=== PATIENT | male | born 1940 | race Hispanic/Latino ===

== ENCOUNTER 2017-07-15 14:37 | Inpatient (IN) | payer MEDICARE, MEDICAID ==
--- NOTE | 2017-07-15 15:17 | HP ---
DATE OF ADMISSION: 07/15/2017 REASON FOR ADMISSION: Altered level of consciousness. HISTORY OF PRESENT ILLNESS: This is an elderly gentleman who is a resident at [facility] e received a flu shot at the end part of last week and over the weekend became very confused, lethar gic, and not his normal self. His daughter brought him into my clinic today where he was more confu sed than usual and would nod off to sleep after every question. The patient denies any chest, arm o r back pain. Also denies any syncopal or near syncopal episode. Subsequently, the patient is being admitted for further evaluation and treatment. PAST MEDICAL HISTORY: Unfortunately, the patient's chart is not here from the senior care; however , he does have, 1. History of anxiety disorder. 2. Dementia. 3. GERD. 4. Hyperlipidemia. 5. Depression. 6. Anemia. ALLERGIES: None. MEDICATIONS: None known. FAMILY HISTORY: Noncontributory. SOCIAL HISTORY: She does not smoke or drink alcohol. REVIEW OF SYSTEMS: Cannot be obtained, the patient being confused. PHYSICAL EXAMINATION: GENERAL: He is awake. He is confused. VITAL SIGNS: Blood pressure 124/67, pulse 98, respirations 18. NECK: Supple with no increased JVP or carotid bruit. Carotid had good upstroke with no thyromegaly . COR: Regular rate and rhythm. CHEST: Symmetrical with few wheezing. ABDOMEN: Soft, nontender with normoactive bowel sounds. No bruit or organomegaly. EXTREMITIES: Had 2+ edema. He had palpable pedal pulses. SKIN: There is no evidence of ulceration, lesion, or rash. NEURO: He is awake, but confused. ASSESSMENT: 1. Altered level of consciousness, questionable etiology. 2. Dementia. 3. History of gastroesophageal reflux disease. 4. History of depression. 5. History of anxiety. PLAN: I spoke with the patient's daughter at length and will admit the patient to the hospital wher e we will rule out CVA by CAT scan. We will also check labs and give diuretics for his lower extrem ity swelling. The patient's family verbalized understanding and all questions answered to satisfact ion. This is NICK Gan, dictating for Bud Rey M.D.
[2017-07-15] MEDS ORDERED: Furosemide 40 MG/4 ML VIAL SLOW IVP SCH (15:20)
[2017-07-15] MEDS ORDERED: Potassium Chloride 10 MEQ TAB PO SCH (15:30)
[2017-07-15 16:12] LABS: #Eosinphils 0.1 thou/uL (0.0-0.7); #Lymphocytes 1.5 thou/uL (1.20-3.40); #Monocytes 0.9 thou/uL (0.11-0.59); #Neutrophils 7.8 thou/uL (1.40-6.50); %Basophils 0.5 % (0.0-1.0); %Eosinophils 0.6 % (0.0-10.0); %Lymphocytes 14.3 % (21.0-51.0); %Monocytes 8.6 % (0.0-10.0); Hematocrit 45.2 % (42.0-52.0); Red Blood Cell (RBC) Count 4.82 mill/uL (4.70-6.10); White Blood Cell (WBC) Count 10.3 thou/uL (4.8-10.8)
[2017-07-15 16:32] LABS: ALT (SGPT) 7 U/L (8-55); AST (SGOT) 9 U/L (5-34); Alkaline Phosphatase 74 U/L (40-150); BUN (Urea Nitrogen) 12 mg/dL (8.4-25.7); Bilirubin, Total 0.5 mg/dL (0.2-1.2); Calc. Creatinine Clearance 0 mL/min (70-130); Calcium 8.7 mg/dL (7.8-10.44); Estimated GFR-MDRD Greater than 90; Protein, Total 7.5 g/dL (5.8-8.1)
[2017-07-15 16:41] LABS: Anion Gap 16 mmol/L (10-20); Carbon Dioxide 33 mmol/L (23-31); Chloride 96 mmol/L (98-107)
[2017-07-15 17:14] VITALS: BMI 41.1
[2017-07-15] MEDS: Sodium Chloride 0.9% 1,000 ML IV SCH (17:44)
--- NOTE | 2017-07-15 17:44 | RAD ---
PORTABLE CHEST 1 VIEW: Date: 07/15/17 Time: 1514 hours HISTORY: Change in mental status. FINDINGS/IMPRESSION: Comparison is made with exam of 05/12/13. The heart size is borderline. There is pulmonary vascular congestion. Patchy opacities are seen in t he lower lung sharma. Small pleural effusions may be present. No pneumothoraces are identified. The possibility of infection/pneumonia should be considered. POS: [facility]
--- NOTE | 2017-07-15 18:41 | CT ---
NONCONTRAST HEAD CT: History: Change in mental status. Comparison: 01-30-12, 07-05-11 Technique: Noncontrast head CT is performed from skull base to skull vertex. FINDINGS: No parenchymal hemorrhage. No extraaxial hematoma. No midline shift. Basilar cisterns are patent. Ag e appropriate atrophy. Cortical schmid white matter differentiation is preserved. Ventricles and sulci are patent and symmetric. There is ectasia and prominence of the basilar artery. The possibility of a basilar aneurysm cannot be excluded. Findings are essentially unchanged from June 2011. Calvarium is intact. Adequate aeration of sinuses and mastoid air cells. IMPRESSION: 1. No acute intracranial process. 2. Chronic small vessel ischemic change of white matter. 3. 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 Findings are unchanged as far back as 2010. Non-emergent work up could be performed. POS: [facility]
[2017-07-15] MEDS ORDERED: Tamsulosin HCl 0.4 MG CAP PO SCH (19:30)
[2017-07-15] MEDS: Melatonin 3 MG TAB PO SCH (21:00)
[2017-07-15] MEDS ORDERED: ALPRAZolam 0.25 MG TAB PO SCH (21:00)
[2017-07-16] MEDS: Sodium Chloride 0.9% 1,000 ML IV SCH ×3 (05:55→11:32)
--- NOTE | 2017-07-16 08:16 | PRG ---
DATE OF SERVICE: 07/16/2017 SUBJECTIVE: The patient is confused. He has declined since yesterday. His daughter is at bedside. Unfortunately his lab came back normal. His CT of the brain was normal. His chest x-ray is mikayla l. The only thing I do not have is his ammonia and his urine. PHYSICAL EXAMINATION: GENERAL: He is confused. He is on oxygen. VITAL SIGNS: Blood pressure is 150/80, pulse 100, respirations 20. He has 98.1 temperature. NECK: Supple with no increased JVP or carotid bruit. Carotid had good upstroke with no thyromegaly . COR: Regular rate and rhythm. CHEST: Symmetrical. Clear to auscultation and percussion. ABDOMEN: Soft, nontender with normoactive bowel sounds. No bruit or organomegaly. EXTREMITIES: No edema or cyanosis. He had palpable pedal pulses. SKIN: There is no evidence of ulcers lesion, or rash. NEUROLOGIC: He is confused. ASSESSMENT: 1. Altered level of consciousness, questionable etiology. 2. Dementia. 3. Hypertension. PLAN: I discussed at length with the daughter and there is no clear evidence of what is going on wi th him unless he is approaching end of life with dementia. The patient's daughter will talk with t he aunt to decide if they want him to be a full code or DNR and if they want hospice.
[2017-07-16] MEDS ORDERED: LINZESS 145 MCG PO SCH (09:00)
[2017-07-16] MEDS: Aspirin 81 mg Enteric Coated Tablet PO SCH (10:09)
[2017-07-16] MEDS: Donepezil HCl 5 MG TAB PO SCH (10:10)
[2017-07-16] MEDS: Tamsulosin HCl 0.4 MG CAP PO SCH ×2 (10:10→20:35)
[2017-07-16] MEDS: cefTRIAXone\\ROCEPHIN 1 GM, IV Admixture Fee-Chemo 1 UNITS in Sodium Chloride 0.9% 100 ML IVPB SCH (11:32)
[2017-07-16 12:41] LABS: Bilirubin Negative (Negative); Blood, Urine Negative (Negative); Glucose, Urine (Dipstick) Negative (Negative); Ketone, Urine Negative (Negative); Nitrite Negative (Negative); Protein, Urine (Dipstick) Trace mg/dL (Neg-Trace)
[2017-07-16 12:48] LABS: Bacteria/HPF 2+ HPF (None Seen); Hyaline Casts/LPF 4-6 HYALINE CAST LPF (0-3 Hyaline); RBC/HPF 0-3 HPF (0-3); Squamous Epithelial 0-3 HPF (0-3)
[2017-07-16] MEDS ORDERED: Acetaminophen 325 MG TAB PO PRN (15:37)
[2017-07-16] MEDS: Melatonin 3 MG TAB PO SCH (20:35)
[2017-07-17] MEDS: Sodium Chloride 0.9% 1,000 ML IV SCH ×3 (00:42→15:30)
[2017-07-17] MEDS ORDERED: Acetaminophen 325 MG Suppository PR PRN (07:58)
[2017-07-17 08:03] LABS: #Lymphocytes 0.8 thou/uL (1.20-3.40); #Monocytes 0.7 thou/uL (0.11-0.59); #Neutrophils 7.4 thou/uL (1.40-6.50); %Eosinophils 0.4 % (0.0-10.0); %Lymphocytes 8.5 % (21.0-51.0); %Monocytes 7.8 % (0.0-10.0); Hematocrit 46.4 % (42.0-52.0); Mean Platelet Volume 8.1 fL (7.4-10.4); White Blood Cell (WBC) Count 8.9 thou/uL (4.8-10.8)
--- NOTE | 2017-07-17 08:19 | RAD ---
UPRIGHT PORTABLE CHEST ONE VIEW: HISTORY: A 77-year-old male with altered mental status. Concern for aspiration. COMPARISON: 07/15/2017 FINDINGS: Poor inspiratory effort. Somewhat progressive, more confluent alveolar parenchymal changes bilatera lly, particularly in the perihilar regions, with bilateral pleural effusions. IMPRESSION: Worsening bilateral perihilar alveolar parenchymal changes and pleural effusions. Possibilities inc lude that of bilateral aspiration versus pneumonia versus edema. Continued short-term followup for complete clearing. POS: [facility]
[2017-07-17] MEDS: Donepezil HCl 5 MG TAB PO SCH (09:16)
[2017-07-17] MEDS: Aspirin 81 mg Enteric Coated Tablet PO SCH (09:16)
[2017-07-17] MEDS: Milk Of Magnesia 30 ML UDCUP PO SCH (09:17)
[2017-07-17] MEDS: Tamsulosin HCl 0.4 MG CAP PO SCH ×2 (09:17→23:17)
[2017-07-17] MEDS: Enalaprilat Dihydrate 1.25 MG/ML VIAL SLOW IVP PRN (09:22)
[2017-07-17] MEDS: cefTRIAXone\\ROCEPHIN 1 GM, IV Admixture Fee-Chemo 1 UNITS in Sodium Chloride 0.9% 100 ML IVPB SCH (11:07)
[2017-07-17 21:44] VITALS: TEMP 99.2
[2017-07-17] MEDS: Melatonin 3 MG TAB PO SCH (23:17)
[2017-07-18] MEDS: Sodium Chloride 0.9% 1,000 ML IV SCH (06:18)
[2017-07-18 06:42] LABS: #Eosinphils 0.2 thou/uL (0.0-0.7); #Lymphocytes 0.8 thou/uL (1.20-3.40); #Neutrophils 7.2 thou/uL (1.40-6.50); %Basophils 0.4 % (0.0-1.0); %Eosinophils 1.8 % (0.0-10.0); %Lymphocytes 8.4 % (21.0-51.0); %Monocytes 11.1 % (0.0-10.0); Hematocrit 43.8 % (42.0-52.0); Mean Platelet Volume 8.5 fL (7.4-10.4); Red Blood Cell (RBC) Count 4.75 mill/uL (4.70-6.10); White Blood Cell (WBC) Count 9.2 thou/uL (4.8-10.8)
[2017-07-18 06:44] LABS: Anion Gap 12 mmol/L (10-20); BUN (Urea Nitrogen) 25 mg/dL (8.4-25.7); Calc. Creatinine Clearance 133 mL/min (70-130); Calcium 8.7 mg/dL (7.8-10.44); Carbon Dioxide 32 mmol/L (23-31); Chloride 101 mmol/L (98-107); Estimated GFR-MDRD Greater than 90
[2017-07-18 07:43] VITALS: BP 172/78
[2017-07-18] MEDS: Tamsulosin HCl 0.4 MG CAP PO SCH (08:01)
[2017-07-18] MEDS: Donepezil HCl 5 MG TAB PO SCH (08:01)
[2017-07-18] MEDS: Aspirin 81 mg Enteric Coated Tablet PO SCH (08:01)
[2017-07-18] MEDS: Milk Of Magnesia 30 ML UDCUP PO SCH (08:01)
[2017-07-18] MEDS: Enalaprilat Dihydrate 1.25 MG/ML VIAL SLOW IVP PRN (08:08)
--- NOTE | 2017-07-18 08:09 | PRG ---
DATE OF SERVICE: 07/18/2017 SUBJECTIVE: The patient had a rough night. He was anxious. He was agitated. O2 sat dropped into the 70s. Unfortunately, the patient did not pass his swallow evaluation; however, the speech pathol ogist will come back again tomorrow to reevaluate him. PHYSICAL EXAMINATION: GENERAL: Upon evaluation, he is awake, he is confused. He has oxygen. He has got IV fluids. VITAL SIGNS: Blood pressure 140/80, pulse 100, respirations 20, temperature 99.2. NECK: Supple with no increased JVP or carotid bruit. Carotid had good upstroke with no thyromegaly . COR: Regular rate and rhythm, but tachycardic. CHEST: Scattered wheezing. ABDOMEN: Soft, nontender with normoactive bowel sounds. There is no bruit or organomegaly. EXTREMITIES: No edema or cyanosis. He had palpable pedal pulses. SKIN: There is no evidence of ulceration lesion, or rash. NEUROLOGIC: He is awake, but confused. LABORATORY: His CBC was normal. His CMP was normal. ASSESSMENT: 1. Pneumonia. 2. Dementia. 3. Hypertension. 4. Dysphagia. PLAN: I spoke at length with the daughter and she is leaning towards DNR, but she still wants to wa it and talk more family members. In the meantime, will change his IV fluid rate to 75 since he is h aving more wheezing, will hopefully be able to get out of bed and follow up with a CBC and CMP tomor row. The patient's daughter verbalized understanding and all questions answered to her satisfaction .
--- NOTE | 2017-07-18 10:02 | PQF ---
CLINICAL DOCUMENTATION IMPROVEMENT CLARIFICATION FORM: ICD-10 Updated PLEASE DO AN ADDENDUM TO THE PROGRESS NOTE WITH ANY DOCUMENTATION UPDATES OR ADDITIONS AND CARRY THROUGH TO DC SUMMARY. THANK YOU. DATE: 07/18 ATTN: DR. KEHINDE TYSON Please exercise your independent, professional judgment in responding to the clarification form. Clinical indicators are provided on the bottom of this form for your review Please check appropriate box(s): [ x] Encephalopathy: Type: [ ] Acute [ ] Subacute Etiology: [ ] Metabolic [ ] Toxic [ ] Unspecified [ ] in the setting of underlying dementia [ x ] Other (please specify) [ x] Other diagnosis ____aspiration pneumonia [ ] Unable to determine For continuity of documentation, please document condition throughout progress notes and discharge summary. Thank You. CLINICAL INDICATORS - SIGNS / SYMPTOMS / LABS H&P DOCUMENTATION 07/15: HX OF PRESENT ILLNESS: ...OVER THE WEEKEND BECAME VERY CONFUSED, LETHARGIC & NOT HIS NORMAL SELF. ...BROUGHT TO CLINIC WHERE HE WAS MORE CONFUSED THAN USUAL PAST MEDICAL HX: 2. DEMENTIA PHYSICAL EXAM: NEURO: HE IS AWAKE, BUT CONFUSED ASSESSMENT: 1. ALTERED LEVEL OF CONSCIOUSNESS, QUESTIONABLE ETIOLOGY 2. DEMENTIA PROGRESS NOTE 07/16 & : THE PATIENT IS CONFUSED ASSESSMENT: 1. PNEUMONIA PROGRESS NOTE 07/17: PROBABLE ASPIRATION PNEUMONIA SPEECH CONSULT DOCUMENTATION 07/17: PT UNABLE TO ANSWER ANY SIMPLE QUESTIONS. ...PER DAUGHTER, "THIS IS NOT PATIENT'S BASELINE, HE IS USUALLY ABLE TO TALK TO OTHERS, REMAIN ON TOPIC & CONVERSES OFTEN WITH OTHERS THROUGHOUT THE DAY AT THE [facility]." RISK FACTORS PROBABLE ASPIRATION PNEUMONIA ALTERED MENTAL STATUS DECREASED 02 SATS OFF OXYGEN TREATMENTS: IV ANTIBIOTICS (ROCEPHIN 07/15 - PRESENT; LEVAQUIN 07-17 - PRESENT) (NS 07/15 - PRESENT) SUPPLEMENTAL OXYGEN (07/15 - PRESENT) THANK YOU! Mariah (This form is maintained as a part of the permanent medical record) 2015 [employer]. All Rights Reserved Mariah Hartley RN, BSN [email or web address] Office: [phone] [facility]ITAL[facility]ich[facility]
--- NOTE | 2017-07-18 10:10 | PQF ---
CLINICAL DOCUMENTATION IMPROVEMENT CLARIFICATION FORM: ICD-10 Updated PLEASE DO AN ADDENDUM TO THE PROGRESS NOTE WITH ANY DOCUMENTATION UPDATES OR ADDITIONS AND CARRY THROUGH TO DC SUMMARY. THANK YOU. DATE: 07/18 ATTN: DR. KEHINDE TYSON Please exercise your independent, professional judgment in responding to the clarification form. Clinical indicators are provided on the bottom of this form for your review Please check appropriate box(s): BMI > 40 with associated diagnosis of: (check one) [ x ] Morbid (Severe) Obesity [ ] Due to excess calories [ ] with Alveolar Hypoventilation (Pickwickian syndrome) [ ] Obesity [ ] Other diagnosis [ ] Unable to determine For continuity of documentation, please document condition throughout progress notes and discharge summary. Thank You. BMI > 40 30.0 - 34.9 Obese 35.0 - 39.9 Severely Obese 40.0 and Over Morbidly Obese CLINICAL INDICATORS - SIGNS / SYMPTOMS / LABS BMI: 41.1 RISK FACTORS: DEMENTIA DIFFICULTY SELF-PERFORMING ADL'S TREATMENTS: ADDITIONAL STAFF FOR TRANSFERS, POSITIONING, ASSISTANCE W/ADL'S LARGE BP CUFF THANK YOU! Mariah (This form is maintained as a part of the permanent medical record) 2014 [employer]. All Rights Reserved Mariah Hartley RN, BSN [email or web address] Office: [phone] [facility]
--- NOTE | 2017-07-19 13:08 | DS ---
DATE OF ADMISSION: 07/15/2017 DATE OF : 07/18/2017 CHIEF COMPLAINT ON ADMISSION: Altered level of consciousness. History and physical have previously been dictated. I will resume from there. HOSPITAL COURSE: The patient was placed in a medical bed where IV fluids, IV antibiotics after cultures were taken. CT scan did not show an acute finding such as CVA after he was placed into the hospital. He then, however, over the next 24 hours began to cough and gurgle and it became evident on x-ray that he had pneumonia. It was noted over the next 24 hours by the nursing staff that there was significant difficulty swallowing and probable aspiration of food. A swallow study and evaluation was ordered; however, the patient continued to deteriorate significantly such that by 07/17/2017 it was evident that his prognosis was very poor and a do not resuscitate order was obtained by the family members. By 07/18/2017 he had a rough night. He was anxious and agitated. His O2 had dropped into the 70s despite multiple antibiotics and he was noted to not pass a swallow evaluation. The daughter had talked with her family by this time and had agreed that he would be a DNR, supportive measures; however, remained in place to keep him comfortable to actually treat the infection and despite this, by that evening, the patient was found by the nurse to be absent of vital signs and was pronounced on 07/18/2017. DIAGNOSES AT TIME OF : Aspiration pneumonia, dementia, significant gastroesophageal reflux disease, hyperlipidemia, anxiety disorder, depression and anemia. His body will be released to the home. The family have been counseled and we will reach out to them to make sure that there is no grief issues. Time needed to prepare for Summary, review chart, dictate, dependency counselor family about 30 minutes. NAZ
--- NOTE | 2017-07-25 13:51 | PQF ---
DATE: 07/25/17 ATTN: DR. TYSON Please exercise your independent, professional judgment in responding to the clarification form. Clinical indicators are provided on the bottom of this form for your review Please check appropriate box(s): [ ] Acute Respiratory Failure: [ ] with Hypoxia [ ] with Hypercapnia [ ] Acute On Chronic Respiratory Failure: [ ] with Hypoxia [ ] with Hypercapnia [ ] Acute Respiratory Failure due to: (etiology) [ ] Acute Respiratory Insufficiency following (if applicable): [ ] trauma [ ] surgery [ ] Chronic Respiratory Failure only [ ] with Hypoxia [ ] with Hypercapnia [ ] Hypoxia [ x ] Other diagnosis ___Aspiration Pneumonia [ ] Unable to determine In addition, please specify: Present on Admission (POA): [ ] Yes [ ] No [ x ] Unable to determine For continuity of documentation, please document condition throughout progress notes and discharge summary. Thank You. Clinical Indicators: 07-15 CXR: Pulmonary Vascular Congestion / Small pleural effusion H&P: AMS / CONFUSED / LETHARGIC Summary: Aspiration PNA PN 07-18 Agitated / anxious / Oxygen sat dropped to 70's more wheezing 07-18 PN: Pt did not pass swallow evaluation Nursing assessment: 07-15 - course crackles 07-16 - Unable to lie flat / difficulty clearing secretions / breath sounds diminished RISKS: H&P - Physical exam - 2+ edema extremities PN 07-18 PNA TREATMENT: H&P: Give diuretics for LE swelling (Lasix IV 07-15-17) 07-16 ORDERS: Hand held neb tx Q 4 hours ( 07-17 Orders: O2 NC to keep O2 Sat > 92; HOB elevated 30 degrees Resp Therapy - O2 @ 3 - 4.5 LNC 07-16 - 07-18 MTDD
== END 2017-07-18 09:45 | disposition expired | DRG 177 ==
LOC: T4-B 14:37
PROVIDERS: ADMIT Specialist; ATTEND Specialist
DX: J69.0 Pneumonitis due to inhalation of food and vomit (principal); G93.49 Other encephalopathy; Z68.41 Body mass index [BMI] 40.0-44.9, adult; R13.10 Dysphagia, unspecified; E66.01 Morbid (severe) obesity due to excess calories; F03.90 Unspecified dementia, unspecified severity, without behavioral disturbance, psychotic disturbance, mood disturbance, and anxiety; D64.9 Anemia, unspecified; R40.4 Transient alteration of awareness; F41.9 Anxiety disorder, unspecified; K21.9 Gastro-esophageal reflux disease without esophagitis; E78.5 Hyperlipidemia, unspecified; F32.9 Major depressive disorder, single episode, unspecified; I10 Essential (primary) hypertension; Z66 Do not resuscitate
CPT/HCPCS: 36415; 70450; 71010; 80048; 80053; 81001; 82140; 83880; 85025; 87086; 94640; G8996-GN-CM; G8997-GN-CJ; J0696; J1940; J1956; J7050; J7620